=== PATIENT | female | born 1965 | race American Indian/Alaskan Native ===

== ENCOUNTER 2017-09-04 22:46 | Emergency (ER) | payer SELFPAY ==
[2017-09-04 23:33] VITALS: BP 171/88
[2017-09-04] MEDS ORDERED: ASPIRIN PO ONE (23:37)
[2017-09-04 23:56] LABS: Hematocrit 41.4 % (30.3-42.9); Hemoglobin 13.6 gm/dl (10.1-14.3); Mean Corpuscular HGB Conc 33 % (30-34); Mean Corpuscular Hemoglobin 29 pg (28-32); Mean Corpuscular Volume 88 fl (79-97); Platelet Count 289 K/mm3 (140-440); Red Blood Count 4.69 M/mm3 (3.65-5.03); Red Cell Distribution Width 13.8 % (13.2-15.2)
[2017-09-05 00:17] LABS: BUN/Creatinine Ratio 14; Blood Urea Nitrogen 10 mg/dL (7-17); Calcium 8.8 mg/dL (8.4-10.2); Hemolysis Index 21
--- NOTE | 2017-09-05 00:34 | XRay Report ---
FINAL REPORT EXAM: XR CHEST ROUTINE 2V HISTORY: SOB TECHNIQUE: PA and lateral views of the chest were submitted. FINDINGS: The heart size is at the upper limits of normal. The thoracic aorta is mildly tortuous. The lungs are clear. The lungs are not congested. Pleural fluid is not seen. The skeletal structures are well-maintained. IMPRESSION: No active chest disease.
[2017-09-05 00:41] LABS: Basophils % (Manual) 0 % (0.0-1.8); Total Cells Counted 100
[2017-09-05 00:43] LABS: Anisocytosis Few; Hypochromasia Few
[2017-09-05] MEDS ORDERED: MOTRIN PO ONE (02:28)
--- NOTE | 2017-09-05 04:13 | Emergency Department Report ---
ED Chest Pain HPI - General Chief Complaint: Chest Pain Stated Complaint: CHEST PAIN Time Seen by Provider: 09/05/17 02:28 Source: patient Mode of arrival: Ambulatory Limitations: No Limitations - History of Present Illness Initial Comments: Patient is a 52-year-old asthmatic female who is presenting with chest pain. Patient states she's had some chest discomfort for 2-3 days. Patient has had she considers a head cold for approximately 2 weeks with mild cough and postnasal drip. Patient now states she has some sharp left-sided chest pain that has some mild radiation to the shoulder. Patient states there is some pain when she breathes or shortness of breath. Patient denies diaphoresis nausea vomiting there is no exertional component to this pain. Patient denies abdominal pain also. Patient states that her blood pressure is high because she didn't take her blood pressure medicines today. Severity scale (0 -10): 10 - Related Data Home Medications Medication Instructions Recorded Confirmed Last Taken amLODIPine [Norvasc] 5 mg PO DAILY 05/16/14 05/18/14 05/15/14 Previous Rx's Medication Instructions Recorded Last Taken Type Lactulose [Cephulac] 20 gm PO QDAY PRN #120 ml 05/17/14 Unknown Rx ALBUTEROL Inhaler [ProAir HFA 2 puff IH QID PRN #1 inhalation 09/05/17 Unknown Rx Inhaler] HYDROcodone/APAP 5-325 [[place] 1 each PO Q6HR PRN #15 tablet 09/05/17 Unknown Rx 5/325] predniSONE [Deltasone] 20 mg PO QDAY #5 tab 09/05/17 Unknown Rx Allergies Allergy/AdvReac Type Severity Reaction Status Date / Time No Known Allergies Allergy Verified 05/16/14 21:52 Heart Score - HEART Score History: Slightly suspicious EKG: Normal Age: 45-65 Risk factors: 1-2 risk factors Troponin: < normal limit HEART Score: 2 ED Review of Systems ROS: Stated complaint: CHEST PAIN Other details as noted in HPI Comment: All other systems reviewed and negative ED Past Medical Hx - Past Medical History Previous Medical History?: Yes Hx Hypertension: Yes Hx GERD: Yes Additional medical history: Right side intestinal blockage - Surgical History Past Surgical History?: Yes Additional Surgical History: x3, hysterectomy - Social History Smoking Status: Never Smoker Substance Use Type: Alcohol - Medications Home Medications: Home Medications Medication Instructions Recorded Confirmed Last Taken Type amLODIPine [Norvasc] 5 mg PO DAILY 05/16/14 05/18/14 05/15/14 History Lactulose [Cephulac] 20 gm PO QDAY PRN #120 ml 05/17/14 05/18/14 Unknown Rx ALBUTEROL Inhaler [ProAir HFA 2 puff IH QID PRN #1 inhalation 09/05/17 Unknown Rx Inhaler] HYDROcodone/APAP 5-325 [[place] 1 each PO Q6HR PRN #15 tablet 09/05/17 Unknown Rx 5/325] predniSONE [Deltasone] 20 mg PO QDAY #5 tab 09/05/17 Unknown Rx ED Physical Exam - General Limitations: No Limitations General appearance: alert, in no apparent distress - Head Head exam: Present: atraumatic, normocephalic - Eye Eye exam: Present: normal appearance - ENT ENT exam: Present: mucous membranes moist - Neck Neck exam: Present: normal inspection - Respiratory Respiratory exam: Present: normal lung sounds bilaterally. Absent: respiratory distress, wheezes, rales, rhonchi - Cardiovascular Cardiovascular Exam: Present: regular rate, normal rhythm, other (patient has reproducible left-sided chest pain on palpation). Absent: systolic murmur, diastolic murmur, rubs, gallop - GI/Abdominal GI/Abdominal exam: Present: soft, normal bowel sounds - Extremities Exam Extremities exam: Present: normal inspection - Back Exam Back exam: Present: normal inspection - Neurological Exam Neurological exam: Present: alert, oriented X3 - Psychiatric Psychiatric exam: Present: normal affect, normal mood - Skin Skin exam: Present: warm, dry, intact, normal color. Absent: rash ED Course Vital Signs 09/04/17 09/05/17 23:27 03:28 Temperature 98.3 F Pulse Rate 60 Respiratory 18 20 Rate Blood Pressure 171/88 O2 Sat by Pulse 100 100 Oximetry ED Medical Decision Making - Lab Data Result diagrams: 09/04/17 23:41 09/04/17 23:41 Labs 09/04/17 09/04/17 09/05/17 23:41 23:41 02:55 WBC 12.5 H RBC 4.69 Hgb 13.6 Hct 41.4 MCV 88 MCH 29 MCHC 33 RDW 13.8 Plt Count 289 Lymph # Sericulturist Add Manual Diff Complete Total Counted 100 Seg Neuts % (Manual) 48.0 Band Neutrophils % 0 Lymphocytes % (Manual) 41.0 H Reactive Lymphs % (Man) 0 Monocytes % (Manual) 9.0 H Eosinophils % (Manual) 2.0 Basophils % (Manual) 0 Metamyelocytes % 0 Myelocytes % 0 Promyelocytes % 0 Blast Cells % 0 Nucleated RBC % Not Reportable Seg Neutrophils # Man 6.0 Band Neutrophils # 0.0 Lymphocytes # (Manual) 5.1 Abs React Lymphs (Man) 0.0 Monocytes # (Manual) 1.1 H Eosinophils # (Manual) 0.3 Basophils # (Manual) 0.0 Metamyelocytes # 0.0 Myelocytes # 0.0 Promyelocytes # 0.0 Blast Cells # 0.0 WBC Morphology Not Reportable Hypersegmented Neuts Not Reportable Hyposegmented Neuts Not Reportable Hypogranular Neuts Not Reportable Smudge Cells Not Reportable Toxic Granulation Not Reportable Toxic Vacuolation Not Reportable Dohle Bodies Not Reportable Pelger-Huet Anomaly Not Reportable Cassius Rods Not Reportable Platelet Estimate Appears normal Clumped Platelets Not Reportable Plt Clumps, EDTA Not Reportable Large Platelets Not Reportable Giant Platelets Not Reportable Platelet Satelliting Not Reportable Plt Morphology Comment Not Reportable RBC Morphology Not Reportable Dimorphic RBCs Not Reportable Polychromasia Not Reportable Hypochromasia Few Poikilocytosis Not Reportable Anisocytosis Few Microcytosis Not Reportable Macrocytosis Not Reportable Spherocytes Not Reportable Pappenheimer Bodies Not Reportable Sickle Cells Not Reportable Target Cells Not Reportable Tear Drop Cells Not Reportable Ovalocytes Not Reportable Helmet Cells Not Reportable Ivory-Vowinckel Bodies Not Reportable Mora Rings Not Reportable Maryjo Cells Not Reportable Bite Cells Not Reportable Crenated Cell Not Reportable Elliptocytes Not Reportable Acanthocytes (Sp[place]) Not Reportable Rouleaux Not Reportable Hemoglobin C Crystals Not Reportable Schistocytes Not Reportable Malaria parasites Not Reportable Driss Bodies Not Reportable Hem Pathologist Commnt No D-Dimer 145.90 Sodium 141 Potassium 4.0 Chloride 100.8 Carbon Dioxide 27 Anion Gap 17 BUN 10 Creatinine 0.7 Estimated GFR > 60 BUN/Creatinine Ratio 14 Glucose 97 Calcium 8.8 Troponin T < 0.010 - EKG Data -: EKG Interpreted by Me - EKG Data Interpretation: other (EKG shows a sinus rhythm rate is 66 normal axis normal intervals no ST segment elevation or depressions there is evidence of LVH time interpretations [id number]) - Radiology Data Radiology results: report reviewed Chest x-ray is within normal limits - Medical Decision Making Patient most likely has a costochondritis secondary to her upper respiratory infection that she had last week. Patient's d-dimer is within normal limits troponin is negative there's no pneumonia on x-ray patient be discharged home with meds for symptomatic relief. Critical care attestation.: If time is entered above; I have spent that time in minutes in the direct care of this critically ill patient, excluding procedure time. ED Disposition Clinical Impression: Pleurisy, Costochondritis, acute Disposition: DC-01 TO HOME OR SELFCARE Is pt being admited?: No Does the pt Need Aspirin: No Condition: Stable Instructions: Costochondritis (ED) Referrals: PRIMARY CARE, [Primary Care Provider] - 3-5 Days
== END 2017-09-05 04:51 | disposition home or self-care (01) ==
LOC: ED 22:46
DX: M94.0 Chondrocostal junction syndrome [Tietze] (principal); R09.1 Pleurisy; I10 Essential (primary) hypertension; K21.9 Gastro-esophageal reflux disease without esophagitis
CPT/HCPCS: 36415; 71046; 80048; 84484; 85007; 85025; 85379; 93005; 93010

== ENCOUNTER 2018-09-02 21:24 | Emergency (ER) | payer OTHER ==
[2018-09-02 21:46] VITALS: BP 169/95
[2018-09-03] MEDS ORDERED: TORADOL IM ONE (02:34)
[2018-09-03] MEDS ORDERED: DELTASONE PO ONE (02:34)
[2018-09-03] MEDS ORDERED: FLEXERIL PO ONE (02:34)
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
== END 2018-09-03 04:00 | disposition home or self-care (01) ==
LOC: ED 21:24
DX: S16.1XXA Strain of muscle, fascia and tendon at neck level, initial encounter (principal); I10 Essential (primary) hypertension; K21.9 Gastro-esophageal reflux disease without esophagitis; Z90.710 Acquired absence of both cervix and uterus; V43.52XA Car driver injured in collision with other type car in traffic accident, initial encounter; Y93.89 Activity, other specified; Y92.488 Other paved roadways as the place of occurrence of the external cause; Y99.8 Other external cause status
CPT/HCPCS: 96372; 99282; J1885; J7512